=== PATIENT | female | born 1975 | race Caucasian/White ===

== ENCOUNTER 2019-07-02 18:35 | Emergency (ER) | payer BC, OTHER ==
[2019-07-02] MEDS ORDERED: PREDNISONE 20 MG TAB PO ONE (18:53)
--- NOTE | 2019-07-02 18:55 | Emergency Department Record ---
History of Present Illness - General Stated complaint: ALLERGIC REACTION Time Seen by Provider: 07/02/19 18:43 Source: Patient Mode of Arrival: Ambulatory Limitations: No limitations - History of Present Illness Initial Comments: 43 yo female presents to ED for evaluation following a recurrent episode of facial flushing and difficulty in breathing symptoms that began this morning. Patient reports a long-standing history of environmental allergies, reports that she is visiting family and went into the basement where the sump pump cover was partially removed, believes that she may have encountered "mold". Patient reports using her epi pen this morning for her symptoms with resolution. Patient reports that she was at an evening event for a family member where the shaikh had just been cleaned when her symptoms reoccurred, improved with stepping outdoors. Patient reports that she did use her inhaler this evening with improvement in her symptoms. Patient called her diamond merchant who recommended evaluation in the ED. Patient reports that she is feeling much better on arrival. MD Complaint: Other Onset/Timin -: Days(s) Exposure: Unknown Symptoms: Difficulty swallowing Severity: Moderate Treatment Prior to Arrival: Bronchodilator, Epinephrine Previous Allergy History: Other - Related Data Previous Rx's Medication Instructions Recorded Prednisone [Prednisone 20Mg] 20 mg PO BID #9 tab 07/02/19 Allergies Allergy/AdvReac Type Severity Reaction Status Date / Time acetaminophen [From Percocet] Allergy RASH Verified 07/02/19 18:58 lorazepam [From Ativan] Allergy RASH Verified 07/02/19 18:58 metoclopramide [From Reglan] Allergy RASH Verified 07/02/19 18:58 oxycodone [From Percocet] Allergy RASH Verified 07/02/19 18:58 Penicillins Allergy ANAPHYLAXIS Verified 07/02/19 18:58 Sulfa (Sulfonamide Allergy RASH Verified 07/02/19 18:58 Antibiotics) Review of Systems Constitutional: Denies: Chills, Fever, Malaise, Night sweats Eyes: Denies: Eye discharge, Eye pain ENT: Denies: Congestion, Ear pain, Epistaxis Respiratory: Reports: Dyspnea. Denies: Cough Cardiovascular: Denies: Chest pain, Dyspnea on exertion, Palpitations Endocrine: Denies: Fatigue, Heat or cold intolerance Gastrointestinal: Denies: Abdominal pain, Nausea, Vomiting Genitourinary: Denies: Incontinence, Retention Musculoskeletal: Denies: Arthralgia, Back pain Skin: Reports: Rash (Face, now resolved). Denies: Bruising, Change in color Neurological: Denies: Abnormal gait, Confusion, Headache, Tingling, Tremors Psychiatric: Denies: Anxiety Hematological/Lymphatic: Denies: Anemia, Blood Clots Physical Exam - General General Appearance: Alert, Oriented x3, Cooperative, No acute distress, Other (Patient reports that her symptoms have resolved with absence from the environment, no facial swelling/erythema is present on examination, and no hives are present on examination.) Limitations: No limitations - Head Head exam: Atraumatic, Normocephalic, Normal inspection Head exam detail: negative: Abrasion, Contusion, Perez's sign, General tenderness, Hematoma, Laceration - Eye Eye exam: Normal appearance. negative: Conjunctival injection, Periorbital swelling, Periorbital tenderness, Scleral icterus - ENT Ear exam: negative: Auricular hematoma, Auricular trauma Nasal Exam: negative: Active bleeding, Discharge, Dried blood, Foreign body Mouth exam: negative: Drooling, Laceration, Muffled voice, Tongue elevation Throat exam: Other (Normal uvula on examination). negative: Tonsillar erythema, Tonsillomegaly, R peritonsillar mass, L peritonsillar mass - Neck Neck exam: Normal inspection. negative: Meningismus, Tenderness - Respiratory Respiratory exam: Normal lung sounds bilaterally. negative: Respiratory distress, Rhonchi, Stridor, Wheezes - Cardiovascular Cardiovascular Exam: Regular rate, Normal rhythm, Normal heart sounds - Rectal Rectal exam: Deferred - exam: Deferred - Extremities Extremities exam: Normal inspection. negative: Pedal edema, Tenderness - Back Back exam: Denies: CVA tenderness (R), CVA tenderness (L) - Neurological Neurological exam: Alert, Normal gait, Oriented X3 - Psychiatric Psychiatric exam: Normal affect, Normal mood - Skin Skin exam: Normal color. negative: Abrasion Type of lesion: negative: abrasion Course - Reevaluation(s) Reevaluation #1: 07/02/19 19:06 Patient is well appearing on examination without evidence for a systemic allergic reaction. Will treat with Prednisone to prevent reoccurrence of symptoms. Patient appears stable for discharge at this time. Disposition Disposition: Discharge Clinical Impression: Environmental allergies Disposition: Home, Self-Care Condition: (2) Stable Instructions: Allergies (ED) Additional Instructions: Return to ED if your symptoms worsen or if you have any concerns. Prednisone as directed. Follow-up with your family doctor in 3-5 days as directed. Prescriptions: Prednisone [Prednisone 20Mg] 20 mg PO BID #9 tab Forms: Patient Portal Access Time of Disposition: 18:55 Quality - Quality Measures Quality Measures: N/A - Blood Pressure Screening Does Patient Have Any of the Following: No Blood Pressure Classification: Pre-Hypertensive BP Reading Systolic Measurement: 125 Diastolic Measurement: 84 Screening for High Blood Pressure: < Pre-Hypertensive BP, F/U Documented > [G8950] Pre-Hypertensive Follow-up Interventions: Referral to alternative/primary care provider.
== END 2019-07-02 19:53 | disposition home or self-care (01) ==
LOC: ER 18:35
DX: T78.40XA Allergy, unspecified, initial encounter (principal); R13.19 Other dysphagia; R23.2 Flushing
CPT/HCPCS: 99283; J7512